=== PATIENT | female | born 2005 | race African-American/Black ===

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

== ENCOUNTER 2023-09-13 09:17 | Emergency (ER) | payer SELFPAY ==
[~2023-09-13] VITALS: Ht 167.6 cm; Wt 79.0 kg
[~2023-09-13 09:17] MED LIST changes: +KEFLEX500 MG PO; +MECLIZINE 2525 MG PO; +PYRIDIUM200 MG PO; +ZOFRAN4 MG/TAB PO
[2023-09-13 09:24] VITALS: BP 124/66
[2023-09-13 09:30] VITALS: BP 121/75
[2023-09-13] MEDS ORDERED: AMOX/K CLAV875 M1 PO (09:40)
[2023-09-13] MEDS ORDERED: DEXAMETHASONE 2 MG/TAB TAB PO ONE (09:40)
[2023-09-13] MEDS ORDERED: NAPROXEN500 MG PO (09:44)
[2023-09-13 09:45] VITALS: BP 110/68
[2023-09-13 10:00] VITALS: BP 115/63
[2023-09-13 10:15] VITALS: BP 116/63
[2023-09-13 10:23] VITALS: BP 116/63
== END 2023-09-13 10:37 | disposition home or self-care (01) | DRG 153 ==
LOC: ED 09:17
DX: J02.9 Acute pharyngitis, unspecified (principal)

== ENCOUNTER 2024-01-25 11:28 | Emergency (ER) | payer SELFPAY ==
[~2024-01-25] VITALS: Ht 167.6 cm; Wt 79.0 kg
[2024-01-25] VITALS (10 sets, daily range): BP systolic 95–127; BP diastolic 62–87
[~2024-01-25 11:28] MED LIST changes: +AMOX/K CLAV875 M1 PO; +NAPROXEN500 MG PO
[2024-01-25 12:04] LABS: BASO% 0.2 % (0-3); EOS% 3.2 % (0-8); HEMATOCRIT 37.3 % (37.0-47.0); HEMOGLOBIN 12.2 g/dl (12.0-16.0); IMMATURE GRANULOCYTES 0.3 % (0.0-5.0); LYMPH% 18.9 % (15-41); MEAN CELL VOLUME 74.5 fL CALC (80.0-100.0); MEAN CORPUSCULAR HGB 24.4 pG CALC (26.0-32.0); MEAN CORPUSCULAR HGB CONC 32.7 g/dL CAL (32.0-36.0); MONO% 6.5 % (2-13); NEUT# 8.55 thou/uL (2.00-7.15); NEUT% 70.9 % (42-76); RED BLOOD COUNT 5.01 mill/uL (4.20-5.60); RED CELL DISTRI WIDTH 17.8 % (11.5-15.5)
[2024-01-25 12:19] LABS: ALBUMIN 4.4 g/dL (3.2-5.0); BILIRUBIN, TOTAL 0.5 mg/dL (0.02-1.3); CREATININE 0.7 mg/dL (0.5-1.0); POTASSIUM 4.2 mmol/l (3.5-5.1); TOTAL PROTEIN 8.2 g/dL (6.3-8.2)
[2024-01-25] MEDS ORDERED: SODIUM CHLORIDE 0.9% 1,000 ML IV ONE (12:40)
[2024-01-25] MEDS ORDERED: KETOROLAC TROMETHAMINE 30 MG/ML SDV IV ONE (12:40)
[2024-01-25] MEDS ORDERED: ONDANSETRON HCl 4 MG/2 ML SDV IV ONE (12:40)
[2024-01-25 13:06] LABS: URINE BILIRUBIN - DIPSTICK Negative (NEGATIVE); URINE BLOOD DIPSTICK Large (NEGATIVE); URINE GLUCOSE - DIPSTICK Negative (NEGATIVE); URINE KETONE Negative (NEGATIVE); URINE LEUK ESTERASE Trace (NEGATIVE); URINE PH 6.5 (4.5-8.0); URINE PROTEIN - DIPSTICK 100 mg/dL (NEG-TRACE); URINE SPECIFIC GRAVITY >=1.030; URINE UROBILINOGEN - DIPSTICK 0.2 E.U./dL (0.2)
[2024-01-25 13:07] LABS: URINE COLOR Yellow; URINE NITRITE - DIPSTICK Positive (Negative)
[2024-01-25 13:08] LABS: URINE BACTERIA MANY hpf; URINE RBC 0-2 RBC/hpf (0-5); URINE SQUAMOUS EPITHELIAL CELL FEW EPI/hpf (0-FEW); URINE WBC 50-100 WBC/hpf (0-5)
[2024-01-25] MEDS ORDERED: SODIUM CHLORIDE 0.9% 50 ML IV ONE (14:46)
[2024-01-25] MEDS ORDERED: NAPROXEN500 MG PO (15:25)
[2024-01-25] MEDS ORDERED: KEFLEX500 MG PO (15:25)
== END 2024-01-25 15:57 | disposition home or self-care (01) | DRG 690 ==
LOC: ED 11:28
PROVIDERS: Family Medicine; Nurse Practitioner
DX: N39.0 Urinary tract infection, site not specified (principal); B96.20 Unspecified Escherichia coli [E. coli] as the cause of diseases classified elsewhere; N20.0 Calculus of kidney

== ENCOUNTER 2024-03-06 16:44 | Emergency (ER) | payer SELFPAY ==
[~2024-03-06] VITALS: Ht 167.6 cm; Wt 90.7 kg
[2024-03-06] VITALS (11 sets, daily range): BP systolic 94–132; BP diastolic 45–81
[2024-03-06] MEDS ORDERED: methylPREDNISolone SODIUM SUCC 125 MG/2 ML SDV IV ONE (17:00)
[2024-03-06] MEDS ORDERED: IPRATROPIUM-Albuterol 0.5MG-2.5MG/3 ML NEB ONE (17:00)
[2024-03-06 17:20] LABS: BASO% 0.3 % (0-3); EOS% 6.3 % (0-8); HEMATOCRIT 37.4 % (37.0-47.0); HEMOGLOBIN 12.1 g/dl (12.0-16.0); IMMATURE GRANULOCYTES 0.2 % (0.0-5.0); LYMPH% 14.8 % (15-41); MEAN CELL VOLUME 73.6 fL CALC (80.0-100.0); MEAN CORPUSCULAR HGB 23.8 pG CALC (26.0-32.0); MEAN CORPUSCULAR HGB CONC 32.4 g/dL CAL (32.0-36.0); MONO% 4.9 % (2-13); NEUT# 6.93 thou/uL (2.00-7.15); NEUT% 73.5 % (42-76); RED BLOOD COUNT 5.08 mill/uL (4.20-5.60); RED CELL DISTRI WIDTH 19.3 % (11.5-15.5)
[2024-03-06 17:32] LABS: ALBUMIN 4.5 g/dL (3.2-5.0); BILIRUBIN, TOTAL 0.7 mg/dL (0.02-1.3); CREATININE 0.7 mg/dL (0.5-1.0); TOTAL PROTEIN 8.2 g/dL (6.3-8.2)
[2024-03-06] MEDS ORDERED: PREDNISONE20 MG PO (18:09)
[2024-03-06] MEDS ORDERED: LEVOCETIRIZINE D5 MG PO (18:09)
[2024-03-06] MEDS ORDERED: ALBUTEROL SULFATE 8 GM INH IN ONE (18:10)
== END 2024-03-06 19:12 | disposition home or self-care (01) | DRG 203 ==
LOC: ED 16:44
PROVIDERS: Family Medicine
DX: J45.909 Unspecified asthma, uncomplicated (principal)